=== PATIENT | female | born 1970 | race Two or more races ===

== ENCOUNTER 2022-09-21 08:51 | Outpatient (CLI) | payer MEDICARE, OTHER | END 2022-09-21 23:59 | disposition home or self-care (01) | LOC: MSC 08:51 | PROVIDERS: ATTEND Internal Medicine | DX: I12.0 Hypertensive chronic kidney disease with stage 5 chronic kidney disease or end stage renal disease (principal); E11.22 Type 2 diabetes mellitus with diabetic chronic kidney disease; N18.6 End stage renal disease; Z99.2 Dependence on renal dialysis; Z79.4 Long term (current) use of insulin; E87.70 Fluid overload, unspecified; G47.00 Insomnia, unspecified; E78.5 Hyperlipidemia, unspecified; I25.10 Atherosclerotic heart disease of native coronary artery without angina pectoris; Z79.82 Long term (current) use of aspirin; E66.9 Obesity, unspecified; Z68.42 Body mass index [BMI] 45.0-49.9, adult; Z71.3 Dietary counseling and surveillance ==

== ENCOUNTER 2022-10-05 08:49 | Outpatient (CLI) | payer MEDICARE, OTHER | END 2022-10-05 23:59 | disposition home or self-care (01) | LOC: MSC 08:49 | PROVIDERS: ATTEND Internal Medicine | DX: I12.0 Hypertensive chronic kidney disease with stage 5 chronic kidney disease or end stage renal disease (principal); E11.22 Type 2 diabetes mellitus with diabetic chronic kidney disease; N18.6 End stage renal disease; Z99.2 Dependence on renal dialysis; Z79.4 Long term (current) use of insulin; R06.02 Shortness of breath; E87.70 Fluid overload, unspecified; H53.8 Other visual disturbances; Z86.69 Personal history of other diseases of the nervous system and sense organs; E78.5 Hyperlipidemia, unspecified; I25.10 Atherosclerotic heart disease of native coronary artery without angina pectoris; Z79.82 Long term (current) use of aspirin; E66.9 Obesity, unspecified | CPT/HCPCS: 71046; G0463 ==

== ENCOUNTER → 2022-10-06 | Outpatient (CLI) | payer MEDICARE, OTHER | END | disposition home or self-care (01) | LOC: MSC 15:30 | PROVIDERS: ATTEND Internal Medicine | DX: I12.0 Hypertensive chronic kidney disease with stage 5 chronic kidney disease or end stage renal disease (principal); E11.22 Type 2 diabetes mellitus with diabetic chronic kidney disease; N18.6 End stage renal disease; Z99.2 Dependence on renal dialysis; Z79.4 Long term (current) use of insulin; E87.70 Fluid overload, unspecified; R06.02 Shortness of breath; E78.5 Hyperlipidemia, unspecified; I25.10 Atherosclerotic heart disease of native coronary artery without angina pectoris; Z79.82 Long term (current) use of aspirin; E66.9 Obesity, unspecified; H53.8 Other visual disturbances ==

== ENCOUNTER 2022-11-09 08:59 | Outpatient (CLI) | payer MEDICARE, OTHER ==
[2022-11-09 10:44] LABS: HEMATOCRIT 38 % (33-45); HEMOGLOBIN 12.4 g/dL (11.5-14.8)
[2022-11-09 10:51] LABS: BASOPHILS % (AUTO) 0.5 % (0.0-2.0); EOSINOPHILS % (AUTO) 2.4 % (0.0-6.0); LYMPHOCYTES # (AUTO) 1.3 K/uL (0.8-4.8); MEAN CORPUSCULAR HGB CONC 33 g/dl (31.0-36.0); MEAN CORPUSCULAR VOLUME 90 fL (82-100); MONOCYTES # (AUTO) 0.5 K/uL (0.1-1.30); MONOCYTES % (AUTO) 8.9 % (2.0-12.0); NEUTROPHILS % (AUTO) 67.2 % (43.0-81.0); PLATELET COUNT (AUTO) 216 K/uL (150-450)
[2022-11-09 11:06] LABS: CREATININE 4.7 mg/dL (0.6-1.3); POTASSIUM 4.5 mmol/L (3.5-5.1)
== END 2022-11-09 23:59 | disposition home or self-care (01) ==
LOC: MSC 08:59
PROVIDERS: ATTEND Internal Medicine
DX: Z01.818 Encounter for other preprocedural examination (principal); I77.0 Arteriovenous fistula, acquired; I12.0 Hypertensive chronic kidney disease with stage 5 chronic kidney disease or end stage renal disease; E11.22 Type 2 diabetes mellitus with diabetic chronic kidney disease; N18.6 End stage renal disease; Z99.2 Dependence on renal dialysis; Z79.4 Long term (current) use of insulin; E87.70 Fluid overload, unspecified; R06.02 Shortness of breath; E78.5 Hyperlipidemia, unspecified; I25.10 Atherosclerotic heart disease of native coronary artery without angina pectoris; Z79.82 Long term (current) use of aspirin; E66.9 Obesity, unspecified; J30.9 Allergic rhinitis, unspecified; H53.8 Other visual disturbances
CPT/HCPCS: 71046; 85025; 80048; 85610; 85730; 36415; G0463

== ENCOUNTER 2022-11-16 10:00 | Outpatient (CLI) | payer MEDICARE, OTHER | END 2022-11-16 23:59 | disposition home or self-care (01) | LOC: MSC 10:00 | PROVIDERS: ATTEND Internal Medicine | DX: Z01.818 Encounter for other preprocedural examination (principal); I12.0 Hypertensive chronic kidney disease with stage 5 chronic kidney disease or end stage renal disease; E11.22 Type 2 diabetes mellitus with diabetic chronic kidney disease; N18.6 End stage renal disease; Z99.2 Dependence on renal dialysis; Z79.4 Long term (current) use of insulin; I95.9 Hypotension, unspecified; E78.5 Hyperlipidemia, unspecified; I25.10 Atherosclerotic heart disease of native coronary artery without angina pectoris; Z79.82 Long term (current) use of aspirin; E66.9 Obesity, unspecified; H53.8 Other visual disturbances ==

== ENCOUNTER 2023-03-21 15:30 | Outpatient (CLI) | payer MEDICARE, OTHER | END 2023-03-21 23:59 | disposition home or self-care (01) | LOC: MSC 15:30 | PROVIDERS: ATTEND Internal Medicine | DX: R52 Pain, unspecified (principal); I12.0 Hypertensive chronic kidney disease with stage 5 chronic kidney disease or end stage renal disease; E11.22 Type 2 diabetes mellitus with diabetic chronic kidney disease; N18.6 End stage renal disease; Z99.2 Dependence on renal dialysis; Z79.4 Long term (current) use of insulin; E87.70 Fluid overload, unspecified; I95.9 Hypotension, unspecified; E78.5 Hyperlipidemia, unspecified; I25.10 Atherosclerotic heart disease of native coronary artery without angina pectoris; Z79.82 Long term (current) use of aspirin; E66.9 Obesity, unspecified; H53.8 Other visual disturbances ==